=== PATIENT | female | born 1925 | race Caucasian/White ===

== ENCOUNTER 2016-11-28 13:46 | Inpatient (IN) | payer OTHER ==
[2016-11-28] VITALS (9 sets, daily range): BP systolic 136–153; BP diastolic 5–69
[~2016-11-28] VITALS: Ht 160 cm; Wt 67.9 kg
[2016-11-28 14:39] LABS: CHLORIDE 105 mEq/L (99-109)
[2016-11-28 14:40] LABS: POTASSIUM 4.1 mEq/L (3.7-5.4); SODIUM 139 mEq/L (136-147)
[2016-11-28 14:41] LABS: HEMATOCRIT 22.4 % (36.0-46.0); MCH 16.7 PG (29.0-34.0); MCHC 26.3 G/DL (30.0-36.0); MCV 63.3 FL (83-99); MEAN PLAT.VOLUME 8.6 uM^3 (9.5-12.4); PLATELET COUNT 383 K/uL (156-360); RBC DIS.WIDTH-CV 21.2 % (11.8-14.6); RBC DIS.WIDTH-SD 47.1 % (39-53); RED BLOOD COUNT 3.54 M/uL (3.80-5.20); WHITE BLOOD COUNT 12.3 K/uL (4.1-10.2)
[2016-11-28 14:42] LABS: GLUCOSE 161 mg/dL (70-99)
[2016-11-28 14:43] LABS: ANION GAP 12 MEQ/L (2-14)
[2016-11-28 14:44] LABS: TOTAL BILIRUBIN 0.3 mg/dL (0.0-1.0)
[2016-11-28 14:45] LABS: ALKALINE PHOSPHATASE 98 IU/L (3-129)
[2016-11-28 14:46] LABS: GFR ESTIMATE (CALCULATED) > 59 mL/min/
[2016-11-28 14:47] LABS: DIRECT BILIRUBIN 0.1 mg/dL (0.0-0.3); UREA NITROGEN (BUN) 13 mg/dL (9-23)
[2016-11-28 14:49] LABS: LIPASE 29 U/L (1.0-51.0)
[2016-11-28 14:52] LABS: TROP-I INTERPRETATION NEGATIVE; TROPONIN-I 0.02 ng/mL (0.0-0.30)
[2016-11-28 15:16] LABS: ADD MIUA? YES; BILIRUBIN NEGATIVE; BLOOD SMALL; COLOR AMBER ((YELLOW)); GLUCOSE (STRIP) NEGATIVE; KETONES NEGATIVE; LEUKOCYTES LARGE; NITRITE POSITIVE; PROTEIN (STRIP) NEGATIVE; SPECIFIC GRAVITY 1.019 (1.000-1.030)
[2016-11-28 15:41] LABS: BACTERIA 2+ /HPF; EPITHELIAL CELLS RARE /HPF; MUCUS TRACE /LPF; RED BLOOD CELLS 0-5 /HPF (0-5); UCUL ADDED? YES; WHITE BLOOD CELLS TNTC /HPF (0-5); WHITE BLOOD CELLS CLUMP MANY /HPF (0-5)
[2016-11-28] MEDS ORDERED: CYANOCOBALAM1000 MCG PO (16:26)
[2016-11-28 19:58] LABS: HDL CHOLESTEROL 21 MG/DL (Desirable>=50); LDL CHOLESTEROL 99 mg/dL (Desirable<100); NON-HDL CHOLESTEROL 119 mg/dL (Desirable<160); TOTAL CHOLESTEROL 140 mg/dL (Desirable<200); TRIGLYCERIDES 100 MG/DL (Normal: <150)
[2016-11-28 22:51] LABS: POINT-OF-CARE METER ID UU14188625
[2016-11-29] VITALS (12 sets, daily range): BP systolic 130–191; BP diastolic 58–77
[2016-11-29 02:17] LABS: HEMATOCRIT 26.3 % (36.0-46.0)
[2016-11-29 02:18] LABS: MCV 68.8 FL (83-99)
[2016-11-29 03:12] LABS: IRON 248 MCG/DL (35-150)
[2016-11-29 07:04] LABS: HEMATOCRIT 27.9 % (36.0-46.0); MCV 69.2 FL (83-99)
[2016-11-29 07:37] LABS: FERRITIN 55 NG/ML (10-291)
[2016-11-29 07:47] LABS: Estimated Average Glucose 128 mg/dL (70-123); HEMOGLOBIN A1c (GLYCOHEMOGLOB) 6.1 % HGB (Below 5.7)
[2016-11-29 08:04] LABS: ALKALINE PHOSPHATASE 91 IU/L (3-129); ANION GAP 7 MEQ/L (2-14); CHLORIDE 108 MEQ/L (99-109); GFR ESTIMATE (CALCULATED) > 59 mL/min/; GLUCOSE 82 mg/dL (70-99); SAMPLE HEMOLYSIS CHECK 0; SAMPLE ICTERIC CHECK 0; SAMPLE LIPEMIA CHECK 0; SODIUM 141 MEQ/L (136-147); UREA NITROGEN (BUN) 10 mg/dL (9-23)
[2016-11-29 08:54] LABS: EOSINOPHIL (%) 2.1 % (0-5); EOSINOPHIL COUNT 0.3 K/uL (0-0.3); HEMATOCRIT 26.9 % (36.0-46.0); IMMATURE GRANULOCYTE (%) 0.9 % (0.0-0.7); IMMATURE GRANULOCYTE COUNT 0.1 K/uL; INSTRUMENT ABS NEUTROPHIL CT 9.5 K/uL; LYMPHOCYTE COUNT 1.7 K/uL (1.0-2.8); MCH 19.9 PG (29.0-34.0); MCHC 28.6 G/DL (30.0-36.0); MCV 69.5 FL (83-99); MEAN PLAT.VOLUME 8.6 uM^3 (9.5-12.4); MONOCYTE (%) 9.2 % (3-12); MONOCYTE COUNT 1.2 K/uL (0-0.8); NEUTROPHIL (%) 74.6 % (45-76); NEUTROPHIL COUNT 9.5 K/uL (1.8-6.4); PLATELET COUNT 340 K/uL (156-360); RBC DIS.WIDTH-CV 26.5 % (11.8-14.6); RBC DIS.WIDTH-SD 63.6 % (39-53); RED BLOOD COUNT 3.87 M/uL (3.80-5.20); WHITE BLOOD COUNT 12.7 K/uL (4.1-10.2)
[2016-11-29 11:49] LABS: POINT-OF-CARE METER ID UU14174225
[2016-11-29 11:54] LABS: INTER. NORMALIZED RATIO 1.2; PTT 26.4 (25-32)
[2016-11-29 15:03] LABS: HEMATOCRIT 27.4 % (36.0-46.0); MCV 69.5 FL (83-99)
[2016-11-29 17:12] LABS: POINT-OF-CARE METER ID UU14174225
[2016-11-29 19:45] LABS: HEMATOCRIT 29.3 % (36.0-46.0); MCV 70.8 FL (83-99)
[2016-11-30] VITALS (7 sets, daily range): BP systolic 123–152; BP diastolic 60–89
[2016-11-30 07:20] LABS: HEMATOCRIT 32.2 % (36.0-46.0); MCH 21.9 PG (29.0-34.0); MCHC 30.4 G/DL (30.0-36.0); MEAN PLAT.VOLUME 8.8 uM^3 (9.5-12.4); PLATELET COUNT 290 K/uL (156-360); RBC DIS.WIDTH-CV 27.9 % (11.8-14.6); RBC DIS.WIDTH-SD 69.8 % (39-53); RED BLOOD COUNT 4.47 M/uL (3.80-5.20); WHITE BLOOD COUNT 12.8 K/uL (4.1-10.2)
[2016-11-30 07:44] LABS: POINT-OF-CARE METER ID UU14174225
[2016-11-30 07:46] LABS: ANION GAP 9 MEQ/L (2-14); CHLORIDE 105 MEQ/L (99-109); GFR ESTIMATE (CALCULATED) > 59 mL/min/; POTASSIUM 4.1 MEQ/L (3.7-5.4); SAMPLE HEMOLYSIS CHECK 0; SAMPLE ICTERIC CHECK 0; SAMPLE LIPEMIA CHECK 0; SODIUM 136 MEQ/L (136-147); UREA NITROGEN (BUN) 10 mg/dL (9-23)
[2016-11-30 07:47] LABS: GLUCOSE 112 mg/dL (70-99)
[2016-11-30 12:21] LABS: POINT-OF-CARE METER ID UU14174225
[2016-11-30 21:37] LABS: POINT-OF-CARE METER ID UU14188625
[2016-12-01 00:39] VITALS: BP 163/64
[2016-12-01 04:28] VITALS: BP 112/89
[2016-12-01 06:13] LABS: EOSINOPHIL (%) 2.6 % (0-5); EOSINOPHIL COUNT 0.3 K/uL (0-0.3); IMMATURE GRANULOCYTE (%) 0.9 % (0.0-0.7); IMMATURE GRANULOCYTE COUNT 0.1 K/uL; INSTRUMENT ABS NEUTROPHIL CT 8.3 K/uL; LYMPHOCYTE COUNT 1.2 K/uL (1.0-2.8); MCH 21.9 PG (29.0-34.0); MCV 73.1 FL (83-99); MONOCYTE COUNT 1.1 K/uL (0-0.8); NEUTROPHIL (%) 75.5 % (45-76); NEUTROPHIL COUNT 8.3 K/uL (1.8-6.4); PLATELET COUNT 270 K/uL (156-360); RBC DIS.WIDTH-CV 28.5 % (11.8-14.6); RBC DIS.WIDTH-SD 71.8 % (39-53); RED BLOOD COUNT 4.24 M/uL (3.80-5.20)
[2016-12-01 06:47] LABS: ANION GAP 8 MEQ/L (2-14); CHLORIDE 105 MEQ/L (99-109); GFR ESTIMATE (CALCULATED) > 59 mL/min/; GLUCOSE 97 mg/dL (70-99); POTASSIUM 4.2 MEQ/L (3.7-5.4); SAMPLE HEMOLYSIS CHECK 0; SAMPLE ICTERIC CHECK 0; SAMPLE LIPEMIA CHECK 0; SODIUM 137 MEQ/L (136-147); UREA NITROGEN (BUN) 11 mg/dL (9-23)
[2016-12-01 08:28] LABS: POINT-OF-CARE METER ID UU14188625
[2016-12-01 08:53] VITALS: BP 129/54
[2016-12-01 11:51] VITALS: BP 130/62
[2016-12-01 15:29] VITALS: BP 136/63
[2016-12-01 16:30] LABS: POINT-OF-CARE METER ID UU14174225
[2016-12-01 21:26] LABS: POINT-OF-CARE METER ID UU14174225
[2016-12-01 23:13] VITALS: BP 115/55
[2016-12-02 08:34] LABS: POINT-OF-CARE METER ID UU14188625
[2016-12-02 08:59] VITALS: BP 134/63
[2016-12-02 19:50] VITALS: BP 133/62
[2016-12-02 23:56] VITALS: BP 155/55
[2016-12-03 08:19] VITALS: BP 133/62
[2016-12-03 16:40] VITALS: BP 131/54
[2016-12-03 17:12] LABS: POINT-OF-CARE METER ID UU14174225
[2016-12-03 21:36] LABS: POINT-OF-CARE METER ID UU14174225
[2016-12-03 23:34] VITALS: BP 128/62
[2016-12-04 07:48] LABS: POINT-OF-CARE METER ID UU14188625
[2016-12-04 08:33] VITALS: BP 137/81
[2016-12-04 16:01] VITALS: BP 119/55
[2016-12-04 22:26] LABS: POINT-OF-CARE METER ID UU14174225
[2016-12-05] VITALS: BP 121/54
[2016-12-05 09:07] VITALS: BP 149/69
[2016-12-05 11:59] LABS: POINT-OF-CARE METER ID UU14188625
[2016-12-05] MEDS ORDERED: TAMSULOSIN HCL0.4 MG PO (12:08)
[2016-12-05] MEDS ORDERED: ASPIRIN EC325 MG PO (12:09)
[2016-12-05] MEDS ORDERED: ONDANSETRON4 MG/2 ML IV (12:09)
[2016-12-05] MEDS ORDERED: TRAZODONE HCL50 MG PO (12:09)
[2016-12-05] MEDS ORDERED: AMLODIPINE BESYL5 MG PO (12:09)
[2016-12-05] MEDS ORDERED: PRAVASTATIN SOD40 MG PO (12:09)
[2016-12-05 15:37] VITALS: BP 136/62
[2016-12-05 16:52] LABS: POINT-OF-CARE METER ID UU14188625
[2016-12-06 00:37] VITALS: BP 134/60
[2016-12-06 07:54] VITALS: BP 144/65
[2016-12-06 11:45] LABS: POINT-OF-CARE METER ID UU14174225
[2016-12-06 15:35] VITALS: BP 133/63
[2016-12-06 21:38] LABS: POINT-OF-CARE METER ID UU14174225
[2016-12-06 23:23] VITALS: BP 125/59
[2016-12-07 07:45] LABS: POINT-OF-CARE METER ID UU14174225
[2016-12-07 07:56] VITALS: BP 142/50
[2016-12-07 10:15] VITALS: BP 133/57
== END 2016-12-07 10:48 | DRG 64 ==
LOC: EME 13:46 → EDOF 18:07 → 5SOUTH 18:07
PROVIDERS: Emergency Medicine; Internal Medicine; Nurse Practitioner Adult Health; Specialist
PROC: 30233N1 Transfusion of Nonautologous Red Blood Cells into Peripheral Vein, Percutaneous Approach (ICD-10-PCS; principal; 2016-11-28)
DX: I63.9 Cerebral infarction, unspecified (principal); N39.0 Urinary tract infection, site not specified; C18.8 Malignant neoplasm of overlapping sites of colon; C78.00 Secondary malignant neoplasm of unspecified lung; C78.7 Secondary malignant neoplasm of liver and intrahepatic bile duct; G93.40 Encephalopathy, unspecified; E87.2 Acidosis; K92.2 Gastrointestinal hemorrhage, unspecified; E86.0 Dehydration; D50.9 Iron deficiency anemia, unspecified; R53.1 Weakness; R47.81 Slurred speech; R29.810 Facial weakness; R33.9 Retention of urine, unspecified; B96.20 Unspecified Escherichia coli [E. coli] as the cause of diseases classified elsewhere; I10 Essential (primary) hypertension; E11.9 Type 2 diabetes mellitus without complications; K59.00 Constipation, unspecified; Z66 Do not resuscitate; Z51.5 Encounter for palliative care; Z60.2 Problems related to living alone; Z85.42 Personal history of malignant neoplasm of other parts of uterus
CPT/HCPCS: 70450; 70551; 72131; 74000; 74176; 80048; 80053; 80061; 80076; 81003; 82272; 82378; 82607; 82728; 82746; 82948; 83036; 83540; 83605; 83690; 83880; 84484; 85014; 85018; 85025; 85027; 85610; 85730; 86900; 86901; 86920; 87040; 87077; 87086; 87186; 92610 GN; 93005; 93880; 97530 GP; 99281; 99285; J0696; J1815; J1940; J2405; J2543; J7030; J7050; P9016